=== PATIENT | female | born 1995 | race Caucasian/White ===

== ENCOUNTER 2021-03-30 17:40 | Emergency (ER) | payer OTHER ==
[2021-03-30] MEDS ORDERED: PENVEE K 500 M500 MG PO (18:59)
[2021-03-30] MEDS ORDERED: ZOFRAN ODT 4 MG4 MG PO (18:59)
[2021-03-30] MEDS ORDERED: LODINE CAP 300300 MG PO (18:59)
== END 2021-03-30 19:04 | disposition home or self-care (01) ==
LOC: ER1 17:40
DX: K04.7 Periapical abscess without sinus (principal); K03.81 Cracked tooth
CPT/HCPCS: 99282